=== PATIENT | male | born 1970 | race African-American/Black ===

== ENCOUNTER 2022-09-22 10:09 | Observation (INO) | payer MEDICAID ==
[2022-09-22] MEDS ORDERED: Sodium Chloride 0.9% 1,000 ML IV ONE (10:13)
[2022-09-22] MEDS ORDERED: LORazepam 2 MG/ML SDV ONE (11:24)
[2022-09-22] MEDS ORDERED: LORazepam 2 MG/ML SDV IVPUSH ONE (11:34)
[2022-09-22 11:42] LABS: CARBON DIOXIDE,CO2 22.7 mmol/L (21.0-32.0); POTASSIUM,K 3.9 mmol/L (3.5-5.1)
[2022-09-22 11:46] LABS: CORONAVIRUS COVID-19 NAA NEGATIVE (NEGATIVE); INFLUENZA A NAA POSITIVE (NEGATIVE); INFLUENZA B NAA NEGATIVE (NEGATIVE); RESPIRATORY SYNCYTIAL VIR NAA NEGATIVE (NEGATIVE)
[2022-09-22] MEDS ORDERED: FOSPHENYTOIN IV ONE ×2 (12:00)
[2022-09-22] MEDS ORDERED: [UNRECOGNIZED DRUG - OTHER] IV ONE (12:00)
[2022-09-22] MEDS ORDERED: [UNRECOGNIZED DRUG - OTHER] IV ONE (12:00)
[2022-09-22] MEDS ORDERED: SODIUM CHLORIDE IV ONE ×2 (12:00)
[2022-09-22] MEDS ORDERED: LORazepam 2 MG/ML SDV IV PRN (14:01)
[2022-09-22] MEDS ORDERED: Ondansetron 4 MG/2 ML SDV IVPUSH PRN (14:01)
[2022-09-22] MEDS ORDERED: Acetaminophen 325 MG Tab PO PRN (14:01)
[2022-09-22] MEDS ORDERED: Sodium Chloride 0.9% 10 ML Syringe FLUSH PRN (14:01)
[2022-09-22] MEDS ORDERED: Sodium Chloride 0.9% 2.5 ML Syringe FLUSH PRN (14:01)
[2022-09-22] MEDS ORDERED: Docusate Sodium 100 MG Cap PO PRN (14:01)
[2022-09-22] MEDS: Oseltamivir 75 MG Cap PO SCH (20:33)
[2022-09-22] MEDS ORDERED: Oseltamivir 75 MG Cap PO SCH (21:00)
[2022-09-23] MEDS ORDERED: Phenytoin 100 MG Cap.ER PO SCH ×2 (06:00→09:00)
[2022-09-23] MEDS: Oseltamivir 75 MG Cap PO SCH (09:15)
== END 2022-09-23 18:30 | disposition home or self-care (01) ==
LOC: MW.ED 10:09 → MW.MS 12:24
PROVIDERS: ADMIT Internal Medicine; ATTEND Internal Medicine
DX: R56.9 Unspecified convulsions (principal); J10.1 Influenza due to other identified influenza virus with other respiratory manifestations; I11.0 Hypertensive heart disease with heart failure; I50.9 Heart failure, unspecified; I44.4 Left anterior fascicular block; Z20.822 Contact with and (suspected) exposure to COVID-19; Z91.14 Patient's other noncompliance with medication regimen; Z88.8 Allergy status to other drugs, medicaments and biological substances
CPT/HCPCS: 0241U; 36415; 70450; 71045; 72125; 80053; 81001; 82947; 85025; 87086; 93005; A9270; G0378; J2060; J3490; J7030; Q2009

== ENCOUNTER 2022-10-06 02:06 | Emergency (ER) | payer MEDICAID | END 2022-10-06 04:00 | disposition home or self-care (01) | LOC: MW.ED 02:06 | DX: I82.621 Acute embolism and thrombosis of deep veins of right upper extremity (principal); G40.909 Epilepsy, unspecified, not intractable, without status epilepticus; Z88.8 Allergy status to other drugs, medicaments and biological substances; Z79.01 Long term (current) use of anticoagulants | CPT/HCPCS: 93971-26-RT; 93971-RT; 99283 ==

== ENCOUNTER 2022-10-13 10:27 | Inpatient (IN) | payer SELFPAY ==
[2022-10-13] MEDS ORDERED: Sodium Chloride 0.9% 20 ML SDV IV PRN (10:51)
[2022-10-13] MEDS ORDERED: Sodium Chloride 0.9% 2.5 ML Syringe FLUSH PRN ×2 (10:51→15:51)
[2022-10-13] MEDS ORDERED: Sodium Chloride 0.9% 10 ML Syringe FLUSH PRN ×2 (10:51→15:51)
[2022-10-13 11:21] LABS: CARBON DIOXIDE,CO2 22.9 mmol/L (21.0-32.0); POTASSIUM,K 3.8 mmol/L (3.5-5.1)
[2022-10-13] MEDS ORDERED: Iopamidol 755 MG/ML 500 ML Multipack Bottle IVPUSH ONE (11:44)
[2022-10-13] MEDS ORDERED: Albuterol/Ipratropium 3.0-0.5 MG/3 ML Neb Soln NEB PRN (15:51)
[2022-10-13] MEDS ORDERED: Polyethylene Glycol 3350 Powder 17 GM Packet PO PRN (15:51)
[2022-10-13] MEDS ORDERED: Ondansetron 4 MG/2 ML SDV IVPUSH PRN (15:51)
[2022-10-13] MEDS ORDERED: Acetaminophen 325 MG Tab PO PRN (15:51)
[2022-10-13 15:54] LABS: CORONAVIRUS COVID-19 NAA NEGATIVE (NEGATIVE); INFLUENZA A NAA NEGATIVE (NEGATIVE); INFLUENZA B NAA NEGATIVE (NEGATIVE)
[2022-10-13] MEDS: Enoxaparin 100 MG/1 ML Syringe SUBCUT SCH (16:55)
[2022-10-13] MEDS ORDERED: Phenytoin 100 MG Cap.ER PO SCH (21:00)
[2022-10-13] MEDS ORDERED: Divalproex Sodium Delayed-Release 500 MG Tab.CR PO SCH (21:16)
[2022-10-14] MEDS ORDERED: Melatonin 3 MG Tab PO PRN (00:15)
[2022-10-14] MEDS: Enoxaparin 100 MG/1 ML Syringe SUBCUT SCH (04:03)
[2022-10-14 07:55] LABS: BLOOD UREA NITROGEN,BUN 13 mg/dL (7.0-18.0); CARBON DIOXIDE,CO2 25.3 mmol/L (21.0-32.0); CHLORIDE,CL 104 mmol/L (98-107); GLUCOSE RANDOM 106 mg/dL (74-106); POTASSIUM,K 3.7 mmol/L (3.5-5.1); SODIUM,NA 138 mmol/L (136-148)
[2022-10-14 08:14] LABS: ESTIMATED GFR 104 mL/min (>60)
== END 2022-10-14 14:10 | disposition home or self-care (01) | DRG 176 ==
LOC: MW.ED 10:27 → MW.MS 15:00
PROVIDERS: ADMIT Internal Medicine; ATTEND Internal Medicine
DX: I26.94 Multiple subsegmental thrombotic pulmonary emboli without acute cor pulmonale (principal); I82.621 Acute embolism and thrombosis of deep veins of right upper extremity; G40.909 Epilepsy, unspecified, not intractable, without status epilepticus; Z20.822 Contact with and (suspected) exposure to COVID-19; Z88.8 Allergy status to other drugs, medicaments and biological substances; Z79.01 Long term (current) use of anticoagulants
CPT/HCPCS: 0240U; 36415; 71275; 71275-26; 80048; 80053; 83735; 83880; 84100; 84484; 85025; 85610; 85730; 93005; 99284; A9270-GY; J1650; J3490; Q9967

== ENCOUNTER 2023-02-16 16:36 | Emergency (ER) | payer MEDICAID, OTHER | END 2023-02-16 19:13 | disposition home or self-care (01) | LOC: MW.ED 16:36 | DX: M25.561 Pain in right knee (principal); E66.9 Obesity, unspecified; Z68.34 Body mass index [BMI] 34.0-34.9, adult; Z88.8 Allergy status to other drugs, medicaments and biological substances | CPT/HCPCS: 73562-26-RT; 73562-RT; 93971-26-RT; 93971-RT; 99284 ==